=== PATIENT | female | born 1955 | race Caucasian/White ===

== ENCOUNTER 2020-08-01 14:54 | Outpatient (REF) | payer OTHER, SELFPAY | END 2020-08-01 14:55 | disposition home or self-care (01) | LOC: HO.LNP 14:54 | PROVIDERS: Visit Provider Internal Medicine | DX: Z20.828 Contact with and (suspected) exposure to other viral communicable diseases (principal); R68.89 Other general symptoms and signs; M79.10 Myalgia, unspecified site | CPT/HCPCS: U0003 ==

== ENCOUNTER 2021-05-26 09:00 | Outpatient (REF) | payer MEDICARE, SELFPAY ==
[2021-05-26 09:21] LABS: MANUAL DIFF FLAG NO
[2021-05-26 09:27] LABS: Basophils Percent Auto 0.6 % (0-2); Eosinophils Absolute Auto 0.3 X10*3/uL (0.0-0.4); Eosinophils Percent Auto 5.8 % (0-4); Hematocrit 41.7 % (37-47); Hemoglobin 13.9 g/dl (12.0-16.0); Imm Gran Abs Auto 0.02 X10*3/uL (0.00-0.03); Imm Gran Pct Auto 0.4 % (0.0-0.4); Lymphocytes Absolute Auto 1.6 X10*3/uL (1.2-4.9); Lymphocytes Percent Auto 34.4 % (20-40); Mean Corpuscular HGB Conc 33.3 g/dl (31.0-35.0); Mean Corpuscular Hemoglobin 32.3 pg (27.0-33.0); Mean Corpuscular Volume 96.8 fL (80-98); Mean Platelet Volume 10.1 fL (9.4-12.3); Monocytes Absolute Auto 0.5 X10*3/uL (0.1-1.2); Monocytes Percent Auto 9.9 % (2-11); Neutrophils Absolute Auto 2.3 X10*3/uL (2.0-8.3); Neutrophils Percent Auto 48.9 % (45-73); Platelet Count 239 X10*3/uL (160-400); Red Blood Count 4.31 X10*6/uL (4.20-5.50); Red Cell Distribution Width 12.9 % (11.0-16.0); White Blood Count 4.7 X10*3/uL (4.8-10.8)
[2021-05-26 09:50] LABS: Alanine Aminotransferase 51 U/L (0-31); Albumin Level 4.4 g/dL (3.5-5.0); Alkaline Phosphatase 71 U/L (39-117); Anion Gap 11 (12-20); Aspartate Amino Transferase 32 U/L (5-31); Bilirubin Total 0.6 mg/dL (0.0-1.0); Blood Urea Nitrogen 18 mg/dL (9-16); Calcium 9.5 mg/dL (8.4-10.2); Carbon Dioxide 27 mmol/L (22-29); Chloride 104 mmol/L (96-108); Cholesterol 344 mg/dL; Estimated Glomerular Filt Rate > 60; Glucose Fasting 103 mg/dL (60-99); HDL Cholesterol 59 mg/dL; LDL Cholesterol Calculated 218 mg/dl; Potassium 4.4 mmol/L (3.3-5.1); Sodium 138 mmol/L (135-145); Total Protein 6.8 g/dL (6.5-8.0); Triglycerides 337 mg/dL
[2021-05-26 10:12] LABS: Vitamin D 25-OH Total 25.9 ng/mL (>30)
== END 2021-05-26 09:01 | disposition home or self-care (01) ==
LOC: HO.LAB 09:00
PROVIDERS: PCP Internal Medicine; Visit Provider Internal Medicine
DX: E78.00 Pure hypercholesterolemia, unspecified (principal); E55.9 Vitamin D deficiency, unspecified; M81.0 Age-related osteoporosis without current pathological fracture
CPT/HCPCS: 36415; 80053; 80061; 82306; 85025

== ENCOUNTER 2021-07-26 07:19 | Outpatient (REF) | payer MEDICARE, SELFPAY ==
--- NOTE | ~2021-07-26 | MM_ITS ---
EXAMINATION: MM SCREENING DIGITAL BREAST TOMOSYNTHESIS, BILATERAL CLINICAL INFORMATION: Screening. Asymptomatic. The lifetime risk of breast cancer based on the Tyrer-Cuzick Model is 6%. COMPARISON: Mammography: 07/03/2018, 06/19/2000, 07/28/2015, 02/02/2015, 01/27/2015 TECHNIQUE: Digital breast tomosynthesis is performed in both the craniocaudal and mediolateral oblique views along with computer-aided detection (CAD). Synthesized 2D images are generated from the tomosynthesis. Additional left MLO view is provided. FINDINGS: The breasts are heterogeneously dense, which may obscure small masses (ACR BI-RADS breast composition Category c). There is fibronodular parenchymal pattern similar to prior studies. No developing density. There are 2 biopsy clip markers left breast upper inner and lower inner quadrants, respectively. There is no significant mass or architectural abnormality or abnormal calcifications. There is a low right axillary tail node with old coarse calcification in the node, similar to prior MLO view 2017. The skin contours are smooth. No significant changes. MM/MM tomosynthesis screening BI IMPRESSION: No mammographic evidence of malignancy. ASSESSMENT: BI-RADS 2: Benign RECOMMENDATION: Routine annual mammography screening. This patient's information was entered into a reminder system with a target due date for their next mammogram.
--- NOTE | ~2021-07-26 | MM_ITS ---
EXAMINATION: BONE DENSITOMETRY CLINICAL INDICATION: Osteoporosis. COMPARISON: Previous BD dated 10/11/2017 and baseline BD dated 07/09/2008. TECHNIQUE: Using a [employer] DXA System (software version: 13.1) manufactured by [employer], dual-energy x-ray absorptiometry was performed of the lumbar spine and left hip. The images are of good technical quality. Summary results are attached. FINDINGS: AP SPINE L1-L4: Current: BMD 0.890 g/cm2, Z-score -0.3, T-score -2.4, osteopenia, 0.0% change from previous, 4.1% decrease from baseline (<5% change is not significant). Prior: BMD 0.890 g/cm2. Baseline: BMD 0.928 g/cm2. LEFT FEMUR, NECK: Current: BMD 0.697 g/cm2, Z-score -0.6, T-score -2.5, osteoporosis. Prior: BMD 0.703 g/cm2. Baseline: BMD 0.795 g/cm2. LEFT FEMUR, TOTAL: Current: BMD 0.867 g/cm2, Z-score 0.5, T-score -1.1, osteopenia, 5.5% decrease from previous, 6.9% decrease from baseline (<5% change is not significant). Prior: BMD 0.917 g/cm2. Baseline: BMD 0.931 g/cm2. IDENTIFIED RISK FACTORS: Menopause, history of fracture (adult), low calcium intake, osteoporosis. HISTORY OF FRACTURE: Wrist. MEDICATIONS: Multivitamin, vitamin D. MM/XR DEXA axial skeleton IMPRESSION: 1. DIAGNOSIS: Osteoporosis based on the lowest T-score value of -2.5 in the femoral neck applying World Health Organization criteria. 2. 10-YEAR FRACTURE RISK PREDICTION, FRAX: According to the guidelines, FRAX calculation should only be performed on patients in the osteopenia bone density category. 3. Treatment Recommendations: NOF guidelines recommend consideration for treatment in postmenopausal women and men age 50 and older presenting with the following: -A hip or vertebral (clinical or morphometric) fracture. -T-score less than or equal to -2.5 at the femoral neck or spine after appropriate evaluation to exclude secondary causes. -Low bone mass at the hip or spine and a 10-year fracture probability by FRAX of greater than or equal to 3% for hip fracture or greater than or equal to 20% for major osteoporotic fracture based on the [place] adapted WHO algorithm. 4. Other Recommendations: All treatment decisions require clinical judgment and consideration of individual patient factors, including patient preferences, comorbidities, previous drug use, risk factors not captured in the FRAX model (e.g. frailty, falls, vitamin D deficiency, increased bone turnover, interval significant decline in bone density) and possible under or overestimation of fracture risk by FRAX. Additional medical evaluation for secondary cause of low bone mineral density may be appropriate. FUTURE SCAN RECOMMENDATION: People with diagnosed cases of osteoporosis or at high risk for fracture should have regular bone mineral density tests. For patients eligible for Medicare, routine testing is allowed once every 2 years. The testing frequency can be increased to one year for patients who have rapidly progressing disease, those who are receiving or discontinuing medical therapy to restore bone mass, or have additional risk factors.
== END 2021-07-26 07:20 | disposition home or self-care (01) ==
LOC: HO.MAMMO 07:19
PROVIDERS: Visit Provider Internal Medicine
DX: Z12.31 Encounter for screening mammogram for malignant neoplasm of breast (principal); Z13.820 Encounter for screening for osteoporosis; M81.0 Age-related osteoporosis without current pathological fracture; Z78.0 Asymptomatic menopausal state; Z87.81 Personal history of (healed) traumatic fracture; Z79.899 Other long term (current) drug therapy
CPT/HCPCS: 77063; 77067; 77080

== ENCOUNTER 2021-09-08 12:38 | Day surgery (SDC) | payer MEDICARE, SELFPAY ==
[2021-09-01 11:15] VITALS: BMI 21.1
--- NOTE | 2021-09-06 14:14 | HO.ANESPROP2 ---
Documented by User: Hyun Contreras NP 09/06/21 14:15 HPI - Anesthesia Eval Consult details Narrative: 65yo F for Colonoscopy [facility] Past Medical History Medical History (Updated 09/01/21 @ 11:08 by Nelli Delaney RN) Anxiety and depression Elevated cholesterol IBS (irritable bowel syndrome) Osteoporosis Surgical History Surgical History (Updated 09/01/21 @ 11:09 by Nelli Delaney RN) H/O colonoscopy Hx of hemorrhoidectomy Social History Social History Patient Tobacco Use Status: Tobacco use Unknown Advance Directives Information Provided: Yes (informational brochure mailed) Advance Directives on File: No Meds Allergies Allergy/AdvReac Type Severity Reaction Status Date / Time celecoxib [From CELEBREX] Allergy Severe ANAPHYLAXIS Verified 09/08/21 12:54 NSAIDS (Non-Steroidal Allergy Severe ANYPHYLAXIS Verified 09/08/21 12:54 Anti-Inflamma [NSAIDS (NON-STEROIDAL ANTI-INFLAMMA] Sulfa (Sulfonamide Allergy Severe ANAPHYLAXIS Verified 09/08/21 12:54 Antibiotics) [SULFA (SULFONAMIDE ANTIBIOTICS)] oxycodone [Percocet] AdvReac Intermediate hearing Verified 09/01/21 08:42 things Home Medications Medication Instructions Recorded Confirmed Last Taken Type Ativan 09/01/21 Unknown History Zoloft 09/01/21 09/01/21 Unknown History atorvastatin 09/01/21 Unknown History Exam Exam Date and Time: September 06, 2021 1414 Height,Weight and Vital Signs: Height 5 ft 1 in Weight 50.802 kg Pertinent Lab Results Pertinent Lab Results: Laboratory Tests 05/26/21 05/26/21 09:10 09:10 WBC 4.7 L Hgb 13.9 Hct 41.7 Plt Count 239 Sodium 138 Potassium 4.4 Chloride 104 Carbon Dioxide 27 BUN 18 H Creatinine 0.75 Assessment and Plan Assessment Anesthesia Assessment: Chart Reviewed Documented by User: Nelsy Marin MD 09/08/21 13:50 [facility] Past Medical History Medical History (Updated 09/01/21 @ 11:08 by Nelli Delaney RN) Anxiety and depression Elevated cholesterol IBS (irritable bowel syndrome) Osteoporosis Family History Family history of problems with anesthesia: No Surgical History Surgical History (Updated 09/01/21 @ 11:09 by Nelli Delaney RN) H/O colonoscopy Hx of hemorrhoidectomy History of Problems with Anesthesia: No Social History Social History Patient Tobacco Use Status: Tobacco use Unknown Advance Directives Information Provided: Yes (informational brochure mailed) Advance Directives on File: No Meds Allergies Allergy/AdvReac Type Severity Reaction Status Date / Time celecoxib [From CELEBREX] Allergy Severe ANAPHYLAXIS Verified 09/08/21 12:54 NSAIDS (Non-Steroidal Allergy Severe ANYPHYLAXIS Verified 09/08/21 12:54 Anti-Inflamma [NSAIDS (NON-STEROIDAL ANTI-INFLAMMA] Sulfa (Sulfonamide Allergy Severe ANAPHYLAXIS Verified 09/08/21 12:54 Antibiotics) [SULFA (SULFONAMIDE ANTIBIOTICS)] oxycodone [Percocet] AdvReac Intermediate hearing Verified 09/01/21 08:42 things Home Medications Medication Instructions Recorded Confirmed Last Taken Type Ativan 09/01/21 Unknown History Zoloft 09/01/21 09/01/21 Unknown History atorvastatin 09/01/21 Unknown History Exam Airway Mallampati Class: II TM Dist: >3cm Neck ROM: Full Heart: rrr Lungs: cta Assessment and Plan Assessment Anesthesia Assessment: Anesthesia Plan Discussed and Chart Reviewed Final Anesthetic Review Family History of Problems with Anesthesia: No History of Problems with Anesthesia: No NPO: Yes ASA Class: II Final Preanesthetic Review: No Changes in Pt Med Stat, Meds/Allgs Chart Reviewed and Consent Obtained/Reviewed Patient Risk: Intermediate Procedure Risk: Intermediate Anesthetic Plan Anesthetic Plan: MAC: Disposition: Standard PACU
[2021-09-08 12:55] VITALS: BP 153/79; PULSE 74; RESP 16; TEMP 36.6; O2SAT 96
[2021-09-08] MEDS: Lactated Ringers 1,000 ML 100 ML IVCONT (13:12)
[2021-09-08 14:55] VITALS: BP 121/68; PULSE 83; RESP 12; TEMP 36.2; O2SAT 98
--- NOTE | 2021-09-08 14:57 | PM.OP ---
Brief Operative Note Date of Service: 09/08/21 Pre-op diagnosis: Screening Post-op diagnosis: other (Internal and External hemorrhoids, Diverticulosis) Procedure: Colonoscopy to the cecum and TI Surgeon: Keanu Omalley Anesthesia: MAC Was an Personal Companion used for this Procedure?: No Estimated blood loss (mL): 0 Pathology: none sent Condition: stable Disposition: PACU
[2021-09-08 15:10] VITALS: BP 161/88; PULSE 74; RESP 16; TEMP 36.2; O2SAT 99
--- NOTE | 2021-09-08 16:54 | OP_ITS ---
SURGEON: Keanu Omalley MD INDICATIONS: The patient presents for evaluation of colorectal cancer screening, as well as occasional hematochezia. Full consent was obtained from her for this, including risks of bleeding and perforation. PREOPERATIVE DIAGNOSIS: Colorectal cancer screening and occasional hematochezia. POSTOPERATIVE DIAGNOSIS: Colorectal cancer screening and occasional hematochezia, internal and external hemorrhoids, mild sigmoid diverticulosis. PROCEDURE PERFORMED: Colonoscopy to the cecum and terminal ileum. ESTIMATED BLOOD LOSS: COMPLICATIONS: ANESTHESIA: Medication used, monitored anesthesia care. ASSISTANTS: SPECIMENS: DESCRIPTION OF PROCEDURE: The patient was placed in the left lateral decubitus position. The digital rectal exam revealed a single external hemorrhoid. An Olympus video pediatric colonoscope was entered into the rectum, advanced easily to the cecum. Once in the cecum, I did identify normal-appearing cecal pouch other than some tiny areas of blood which were irrigated and washed away completely, without any sign of underlying mucosal abnormality. The terminal ileum was cannulated and appeared normal, without any sign of bleeding The scope was withdrawn back in the colon. The cecum including the appendiceal orifice and ileocecal valve appeared normal. There was transillumination of light deep in the right lower quadrant. The scope was then slowly withdrawn, assessing all mucosal surfaces carefully. Preparation was excellent. I did not visualize any sign of polyps, colitis, nor angiodysplasia. There was a mild amount of sigmoid diverticulosis. In the rectum, scope was retroflexed visualizing internal hemorrhoids, but no other pathology. The rectal mucosa appeared normal. The scope was straightened and withdrawn from the patient. She tolerated the procedure well and was returned to the recovery area in stable condition. IMPRESSION: 1. Internal and external hemorrhoids. 2. Mild sigmoid diverticulosis. PLAN: Given the negative exam, I would recommend a followup colonoscopy in 10 years. She says she has not had any further bleeding for the past several weeks. She can use symptomatic treatment for the hemorrhoids such as preparation H or Anusol suppositories and/or cream. If the hemorrhoids continue to be problematic, she may need eventual surgical consultation. She will otherwise see me on a p.r.n. basis. MD MONA Larkin/FLOWER / [phone] [facility] HOSPITALMarianne
== END 2021-09-08 15:35 | disposition home or self-care (01) ==
PROVIDERS: PCP Internal Medicine; Visit Provider Internal Medicine
PROC: 0DJD8ZZ Inspection of Lower Intestinal Tract, Via Natural or Artificial Opening Endoscopic (ICD-10-PCS; CPT 45378; principal; 2021-09-08 13:50)
DX: Z12.11 Encounter for screening for malignant neoplasm of colon (principal); K57.30 Diverticulosis of large intestine without perforation or abscess without bleeding; K64.8 Other hemorrhoids; K64.4 Residual hemorrhoidal skin tags; K58.9 Irritable bowel syndrome, unspecified; E78.00 Pure hypercholesterolemia, unspecified; M81.0 Age-related osteoporosis without current pathological fracture; F41.8 Other specified anxiety disorders; Z66 Do not resuscitate; Z79.899 Other long term (current) drug therapy
CPT/HCPCS: G0121

== ENCOUNTER 2022-06-27 08:09 | Outpatient (REF) | payer MEDICARE, SELFPAY ==
[2022-06-27 08:19] LABS: MANUAL DIFF FLAG NO
[2022-06-27 08:59] LABS: Basophils Percent Auto 0.4 % (0-2); Eosinophils Absolute Auto 0.3 X10*3/uL (0.0-0.4); Eosinophils Percent Auto 5.9 % (0-4); Hematocrit 41.4 % (37.0-47.0); Hemoglobin 13.8 g/dl (12.0-16.0); Imm Gran Abs Auto 0.01 X10*3/uL (0.00-0.03); Imm Gran Pct Auto 0.2 % (0.0-0.4); Lymphocytes Absolute Auto 1.5 X10*3/uL (1.2-4.9); Lymphocytes Percent Auto 33.1 % (20-40); Mean Corpuscular HGB Conc 33.3 g/dl (31.0-35.0); Mean Corpuscular Volume 96.1 fL (80.0-98.0); Mean Platelet Volume 10.6 fL (9.4-12.3); Monocytes Absolute Auto 0.5 X10*3/uL (0.1-1.2); Monocytes Percent Auto 11.3 % (2-11); Neutrophils Absolute Auto 2.3 x10*3/uL (2.0-8.3); Neutrophils Percent Auto 49.1 % (45-73); Platelet Count 257 X10*3/uL (160-400); Red Blood Count 4.31 X10*6/uL (4.20-5.50); Red Cell Distribution Width 12.9 % (11.0-16.0); White Blood Count 4.6 X10*3/uL (4.8-10.8)
[2022-06-27 09:24] LABS: Alanine Aminotransferase 32 U/L (0-31); Albumin Level 4.5 g/dL (3.5-5.0); Alkaline Phosphatase 74 U/L (39-117); Anion Gap 16 (12-20); Aspartate Amino Transferase 30 U/L (5-31); Bilirubin Total 0.8 mg/dL (0.0-1.0); Blood Urea Nitrogen 20 mg/dL (9-16); Calcium 9.2 mg/dL (8.4-10.2); Carbon Dioxide 24 mmol/L (22-29); Chloride 105 mmol/L (96-108); Cholesterol 216 mg/dL; Estimated Glomerular Filt Rate > 60; Glucose Random 94 mg/dL (60-115); HDL Cholesterol 63 mg/dL; LDL Cholesterol Calculated 120 mg/dl; Potassium 4.5 mmol/L (3.3-5.1); Sodium 140 mmol/L (135-145); Total Protein 6.8 g/dL (6.5-8.0); Triglycerides 168 mg/dL
[2022-06-27 09:50] LABS: Vitamin D 25-OH Total 32.1 ng/mL (>30)
== END 2022-06-27 08:10 | disposition home or self-care (01) ==
LOC: HO.LAB 08:09
PROVIDERS: PCP Internal Medicine; Visit Provider Internal Medicine
DX: E55.9 Vitamin D deficiency, unspecified (principal); E78.00 Pure hypercholesterolemia, unspecified
CPT/HCPCS: 36415; 80053; 80061; 82306; 85025

== ENCOUNTER 2022-06-29 10:44 | Outpatient (REF) | payer MEDICARE, SELFPAY ==
[2022-06-29 14:06] LABS: Free T4 (Free Thyroxine) 0.91 ng/dL (0.71-1.85); Thyroid Stimulating Hormone 1.36 uIU/mL (0.32-4.0); Vitamin D 25-OH Total 30.3 ng/mL (>30)
[2022-06-29 14:58] LABS: Vitamin B12 379 pg/mL (200-900)
== END 2022-06-29 10:45 | disposition home or self-care (01) ==
LOC: HO.10HDL 10:44
PROVIDERS: Visit Provider Internal Medicine
DX: R53.83 Other fatigue (principal); E55.9 Vitamin D deficiency, unspecified
CPT/HCPCS: 36415; 82306; 82607; 84439; 84443

== ENCOUNTER 2022-12-19 08:24 | Outpatient (REF) | payer MEDICARE, SELFPAY ==
[2022-12-19 09:22] LABS: Anion Gap 14 (12-20); Blood Urea Nitrogen 22 mg/dL (9-16); Calcium 9.5 mg/dL (8.4-10.2); Carbon Dioxide 27 mmol/L (22-29); Chloride 105 mmol/L (96-108); Estimated Glomerular Filt Rate > 60; Glucose Random 97 mg/dL (60-115); Potassium 4.4 mmol/L (3.3-5.1); Sodium 142 mmol/L (135-145)
[2022-12-19 09:48] LABS: Thyroid Stimulating Hormone 3.22 uIU/mL (0.32-4.0); Vitamin B12 453 pg/mL (200-900)
== END 2022-12-19 08:25 | disposition home or self-care (01) ==
LOC: HO.LAB 08:24
PROVIDERS: PCP Internal Medicine; Visit Provider Internal Medicine
DX: E55.9 Vitamin D deficiency, unspecified (principal); R53.83 Other fatigue; K57.90 Diverticulosis of intestine, part unspecified, without perforation or abscess without bleeding
CPT/HCPCS: 36415; 80048; 82607; 84439; 84443

== ENCOUNTER 2023-01-25 07:16 | Outpatient (REF) | payer MEDICARE, SELFPAY ==
--- NOTE | ~2023-01-25 | MM_ITS ---
EXAMINATION: MM SCREENING DIGITAL BREAST TOMOSYNTHESIS, BILATERAL CLINICAL INFORMATION: Screening. Asymptomatic. The lifetime risk of breast cancer based on the Tyrer-Cuzick Model is 4%. COMPARISON: Mammography: 07/26/2021, 07/03/2018, 06/19/2017 TECHNIQUE: Digital breast tomosynthesis is performed in both the craniocaudal and mediolateral oblique views along with computer-aided detection (CAD). Synthesized 2D images are generated from the tomosynthesis. FINDINGS: The breasts are heterogeneously dense, which may obscure small masses (ACR BI-RADS breast composition Category c). There are no significant masses, abnormal calcifications, or other abnormalities. Parenchymal pattern is similar to prior studies. There is no developing density or architectural abnormality. There are 2 biopsy clip markers again seen mid inner left breast. Incidental low right axillary tail node is again noted. The axilla and skin contours are unremarkable. No significant changes. MM/MM tomosynthesis screening BI IMPRESSION: No mammographic evidence of malignancy. ASSESSMENT: BI-RADS 2: Benign RECOMMENDATION: Routine annual mammography screening. This patient's information was entered into a reminder system with a target due date for their next mammogram.
== END 2023-01-25 07:17 | disposition home or self-care (01) ==
LOC: HO.MAMMO 07:16
PROVIDERS: PCP Internal Medicine; Visit Provider Internal Medicine
DX: Z12.31 Encounter for screening mammogram for malignant neoplasm of breast (principal)
CPT/HCPCS: 77063; 77067

== ENCOUNTER 2023-03-05 09:06 | Outpatient (REF) | payer MEDICARE, SELFPAY ==
[2023-03-05 10:28] LABS: Free T4 (Free Thyroxine) 0.93 ng/dL (0.71-1.85); Thyroid Stimulating Hormone 1.62 uIU/mL (0.32-4.0)
== END 2023-03-05 09:07 | disposition home or self-care (01) ==
LOC: HO.LAB 09:06
PROVIDERS: PCP Internal Medicine; Visit Provider Internal Medicine
DX: E03.9 Hypothyroidism, unspecified (principal); R53.83 Other fatigue
CPT/HCPCS: 36415; 84439; 84443

== ENCOUNTER 2023-07-26 09:14 | Outpatient (REF) | payer MEDICARE, SELFPAY ==
[2023-07-26 10:40] LABS: MANUAL DIFF FLAG NO
[2023-07-26 10:45] LABS: Basophils Percent Auto 0.8 % (0-2); Eosinophils Absolute Auto 0.2 X10*3/uL (0.0-0.4); Eosinophils Percent Auto 4.3 % (0-4); Hematocrit 38.9 % (37.0-47.0); Lymphocytes Absolute Auto 1.6 X10*3/uL (1.2-4.9); Lymphocytes Percent Auto 38.9 % (20-40); Mean Corpuscular HGB Conc 33.4 g/dl (31.0-35.0); Mean Corpuscular Hemoglobin 32.5 pg (27.0-33.0); Mean Corpuscular Volume 97.3 fL (80.0-98.0); Mean Platelet Volume 10.4 fL (9.4-12.3); Monocytes Absolute Auto 0.5 X10*3/uL (0.1-1.2); Monocytes Percent Auto 11.8 % (2-11); Neutrophils Absolute Auto 1.8 x10*3/uL (2.0-8.3); Neutrophils Percent Auto 44.2 % (45-73); Platelet Count 237 X10*3/uL (160-400); Red Cell Distribution Width 13.3 % (11.0-16.0)
[2023-07-26 11:08] LABS: Alanine Aminotransferase 24 U/L (0-31); Albumin Level 4.2 g/dL (3.5-5.0); Alkaline Phosphatase 65 U/L (39-117); Anion Gap 11 (12-20); Aspartate Amino Transferase 21 U/L (5-31); Bilirubin Total 0.5 mg/dL (0.0-1.0); Blood Urea Nitrogen 17 mg/dL (9-16); Calcium 9.2 mg/dL (8.4-10.2); Carbon Dioxide 27 mmol/L (22-29); Chloride 108 mmol/L (96-108); Cholesterol 229 mg/dL (<200); Estimated Glomerular Filt Rate > 60; Glucose Fasting 102 mg/dL (60-99); HDL Cholesterol 57 mg/dL (>40); LDL Cholesterol Calculated 142 mg/dL (<100); Potassium 4.1 mmol/L (3.3-5.1); Sodium 142 mmol/L (135-145); Total Protein 6.7 g/dL (6.5-8.0); Triglycerides 154 mg/dL (<150)
[2023-07-26 11:22] LABS: Free T4 (Free Thyroxine) 0.75 ng/dL (0.71-1.85); Thyroid Stimulating Hormone 2.29 uIU/mL (0.32-4.0); Vitamin D 25-OH Total 28.7 ng/mL (>30)
[2023-07-26 11:30] LABS: Vitamin B12 362 pg/mL (200-900)
== END 2023-07-26 09:15 | disposition home or self-care (01) ==
LOC: HO.10HDL 09:14
PROVIDERS: Visit Provider Internal Medicine
DX: E55.9 Vitamin D deficiency, unspecified (principal); K21.9 Gastro-esophageal reflux disease without esophagitis; R53.83 Other fatigue; E05.90 Thyrotoxicosis, unspecified without thyrotoxic crisis or storm
CPT/HCPCS: 36415; 80053; 80061; 82306; 82607; 84439; 84443; 85025

== ENCOUNTER 2023-10-01 09:46 | Outpatient (AMB) | payer MEDICARE, SELFPAY ==
--- NOTE | 2023-10-01 10:06 | A.OFFVIS_ITS ---
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 States her finger is catching and locking for the last 4-6 months and has worsen. Denies numbness, tingling or recent injury. Hx of OA pain. Hx of trigger injection 10 7rs ago. 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 She says her middle finger has been locking painfully for ~6 months now. She denies any numbness, tingling, or injury. She has a hx a trigger finger injection in ~2012, but cannot remember which finger this was for. She does remember this injection resolved her triggering at the time. 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 Review of Systems Const All systems reviewed & are unremarkable except as noted in HPI and below Physical Exam Vital Signs: BMI result Body Mass Index 21.4 Const General: cooperative, healthy appearing and no acute distress Orientation/consciousness: patient oriented x3 HEENT Head: Yes normocephalic and Yes atraumatic Eyes EOM: EOMs intact bilaterally Resp Effort & Inspection: normal respiratory effort and able to speak in complete sentences Cardio Jugular venous distension: no JVD Skin General skin exam: turgor normal Rashes: no rashes Neuro General: patient oriented x3 Extrem Other: Evaluation of Right Upper Extremity: The patient is alert, oriented, and in no acute distress Neuro: Median, Ulnar, Radial nerves motor and sensory intact and sensation is normal to the tips of all digits Vascular: Cap refill brisk ROM: She can make a fist and extend all his digits Visible and palpable locking and catching of the middle finger Tender over the a1 lissy of the middle finger Skin: No lacerations or abrasions. General: No Ecchymosis. No Erythema or evidence of infection. Psych Appearance: grossly normal Affect: normal affect Attitude: cooperative Office Procedures Fracture Care Details: No fracture, injection Fracture Billing Code: Fracture Billing Code Assessment & Plan Assessment & Plan (1) Trigger finger, right middle finger: Code(s): M65.331 - Trigger finger, right middle finger Plan Assessment & Plan: 1. Right middle finger trigger finger I educated her about this condition I discussed operative and non-operative treatment options The patient would like to proceed with an injection Injection #1: The risks and benefits of a steroid injection including but not limited to risk of damage to blood vessels, nerves, tendons, infection, skin bleaching, failure to improve symptoms, increased pain, and possible need for further injections or other intervention were discussed with the patient and the patient wishes to proceed with the steroid injection. Once consent was obtained, I sterilely prepped the area over the A1 lissy of the flexor tendon sheath of the right middle finger. I then injected the flexor tendon sheath with a combination of 1 mL of dexamethasone (4mg/ml), and 1% lidocaine. The patient tolerated the procedure well with no complications. If the patient continues to have locking and catching 4-6 weeks following this injection, they may call to schedule appointment to discuss alternative treatment options Follow-up prn Scribed for Guillermina Nicholson MD by Shahab Mata medical illustrator, on 10/01/23 at 10:30 AM, EST. Coding Level of Care Code New Pt Level 3 (37534) Diagnoses Trigger finger, right middle finger M65.331 CPT Codes Fracture Care - Fracture Billing Code: Fracture Billing Code ([id number])
[2023-10-01 10:09] VITALS: BMI 21.4
== END 2023-10-01 10:51 | disposition home or self-care (01) ==
PROVIDERS: PCP Internal Medicine; Visit Provider Orthopaedic Surgery
DX: M65.331 Trigger finger, right middle finger (principal)
CPT/HCPCS: 20550; 99203

== ENCOUNTER → 2023-10-01 09:46 | Outpatient (BNVA) | payer MEDICARE, SELFPAY | PROVIDERS: PCP Internal Medicine; Visit Provider Orthopaedic Surgery | DX: M65.331 Trigger finger, right middle finger (principal) | CPT/HCPCS: 20550; 99202; J1100 ==

== ENCOUNTER 2023-12-06 09:15 | Outpatient (REF) | payer MEDICARE, SELFPAY ==
[2023-12-06 10:50] LABS: Cholesterol 279 mg/dL (<200); HDL Cholesterol 56 mg/dL (>40)
[2023-12-06 11:01] LABS: LDL Cholesterol Calculated 170 mg/dL (<100); Triglycerides 267 mg/dL (<150)
[2023-12-06 11:09] LABS: Free T4 (Free Thyroxine) 0.89 ng/dL (0.71-1.85); Vitamin D 25-OH Total 29.6 ng/mL (>30)
== END 2023-12-06 09:16 | disposition home or self-care (01) ==
LOC: HO.LAB 09:15
PROVIDERS: PCP Internal Medicine; Visit Provider Internal Medicine
DX: E78.00 Pure hypercholesterolemia, unspecified (principal); E55.9 Vitamin D deficiency, unspecified; E03.9 Hypothyroidism, unspecified
CPT/HCPCS: 36415; 80061; 82306; 84439; 84443

== ENCOUNTER 2023-12-10 10:51 | Outpatient (REF) | payer MEDICARE, SELFPAY ==
[2023-12-10 14:27] LABS: Appearance Urine Clear; Color Urine Yellow; Glucose Urine UA Negative (Negative); Leukocyte Esterase Urine Negative (Negative); Nitrite Urine Negative (Negative); PH 7.5 (5.0-9.0); Specific Gravity - Urine <= 1.005 (1.005-1.025); Urine Blood Negative (Negative); Urine Ketones Negative (Negative); Urine Protein Negative (Neg-Trace)
[2023-12-10 14:30] LABS: Bacteria Urine None Seen (None Seen); Hyaline Casts Urine 0-2 /LPF (0-2); RBC Urine 0-2 /HPF (0-2); Squamous Epithelial Cell Urine 0-2 /HPF (0-2); WBC Urine 0-5 /HPF (0-5)
== END 2023-12-10 10:52 | disposition home or self-care (01) ==
LOC: HO.10HDL 10:51
PROVIDERS: Visit Provider Internal Medicine
DX: Z13.89 Encounter for screening for other disorder (principal)
CPT/HCPCS: 81001; 87086

== ENCOUNTER 2024-03-25 09:48 | Outpatient (REF) | payer MEDICARE, SELFPAY ==
[2024-03-25 11:35] LABS: Alanine Aminotransferase 33 U/L (0-31); Aspartate Amino Transferase 29 U/L (5-31); Cholesterol 225 mg/dL (<200); HDL Cholesterol 69 mg/dL (>40); LDL Cholesterol Calculated 136 mg/dL (<100); Triglycerides 101 mg/dL (<150)
[2024-03-25 11:50] LABS: Vitamin B12 370 pg/mL (200-900)
[2024-03-25 11:53] LABS: Free T4 (Free Thyroxine) 0.86 ng/dL (0.71-1.85)
== END 2024-03-25 09:49 | disposition home or self-care (01) ==
LOC: HO.10HDL 09:48
PROVIDERS: Visit Provider Internal Medicine
DX: E03.9 Hypothyroidism, unspecified (principal); E78.00 Pure hypercholesterolemia, unspecified; R53.83 Other fatigue
CPT/HCPCS: 36415; 80061; 82550; 82607; 84439; 84443; 84450; 84460

== ENCOUNTER 2024-10-01 14:44 | Outpatient (REF) | payer MEDICARE, SELFPAY | END 2024-10-01 14:45 | disposition home or self-care (01) | LOC: HO.MAMMO 14:44 | PROVIDERS: PCP Internal Medicine; Visit Provider Internal Medicine | DX: Z12.31 Encounter for screening mammogram for malignant neoplasm of breast (principal) | CPT/HCPCS: 77063; 77067 ==

== ENCOUNTER → 2024-10-01 15:00 | Outpatient (BNV) | payer MEDICARE, SELFPAY | PROVIDERS: PCP Internal Medicine; Visit Provider Internal Medicine | DX: Z12.31 Encounter for screening mammogram for malignant neoplasm of breast (principal) | CPT/HCPCS: 77063; 77067 ==

== ENCOUNTER 2024-10-13 11:00 | Outpatient (REF) | payer MEDICARE, SELFPAY ==
[2024-10-13 13:04] LABS: MANUAL DIFF FLAG NO
[2024-10-13 13:07] LABS: Basophils Percent Auto 0.7 % (0-2); Eosinophils Absolute Auto 0.2 X10*3/uL (0.0-0.4); Eosinophils Percent Auto 3.9 % (0-4); Hematocrit 42.2 % (37.0-47.0); Imm Gran Abs Auto 0.01 X10*3/uL (0.00-0.03); Imm Gran Pct Auto 0.2 % (0.0-0.4); Lymphocytes Absolute Auto 1.5 X10*3/uL (1.2-4.9); Lymphocytes Percent Auto 33.6 % (20-40); Mean Corpuscular HGB Conc 33.2 g/dl (31.0-35.0); Mean Corpuscular Hemoglobin 31.7 pg (27.0-33.0); Mean Corpuscular Volume 95.7 fL (80.0-98.0); Mean Platelet Volume 10.6 fL (9.4-12.3); Monocytes Absolute Auto 0.5 X10*3/uL (0.1-1.2); Monocytes Percent Auto 10.5 % (2-11); Neutrophils Absolute Auto 2.3 x10*3/uL (2.0-8.3); Neutrophils Percent Auto 51.1 % (45-73); Platelet Count 263 X10*3/uL (160-400); Red Blood Count 4.41 X10*6/uL (4.20-5.50); Red Cell Distribution Width 12.7 % (11.0-16.0); White Blood Count 4.6 X10*3/uL (4.8-10.8)
[2024-10-13 13:29] LABS: Alanine Aminotransferase 36 U/L (0-31); Albumin Level 4.6 g/dL (3.5-5.0); Alkaline Phosphatase 68 U/L (39-117); Anion Gap 12 (12-20); Aspartate Amino Transferase 26 U/L (5-31); Bilirubin Total 0.8 mg/dL (0.0-1.0); Blood Urea Nitrogen 17 mg/dL (9-16); Calcium 9.2 mg/dL (8.4-10.2); Carbon Dioxide 27 mmol/L (22-29); Chloride 106 mmol/L (96-108); Estimated Glomerular Filt Rate > 60; Glucose Random 100 mg/dL (60-115); Sodium 141 mmol/L (135-145); Total Protein 7.4 g/dL (6.5-8.0)
[2024-10-13 13:44] LABS: Free T4 (Free Thyroxine) 0.99 ng/dL (0.71-1.85); Thyroid Stimulating Hormone 2.12 uIU/mL (0.32-4.0)
== END 2024-10-13 11:01 | disposition home or self-care (01) ==
LOC: HO.10HDL 11:00
PROVIDERS: Visit Provider Internal Medicine
DX: E03.9 Hypothyroidism, unspecified (principal); R53.83 Other fatigue; K58.9 Irritable bowel syndrome, unspecified
CPT/HCPCS: 36415; 80053; 84439; 84443; 85025

== ENCOUNTER 2025-01-04 09:25 | Outpatient (REF) | payer MEDICARE, SELFPAY ==
--- NOTE | ~2025-01-04 | XR_ITS ---
CLINICAL HISTORY: PAIN 3 views right foot Comparison: None Findings: No fractures or dislocations No joint effusion There is degenerative narrowing of the inter phalangeal joint of the great toe. No stress fractures. No radiopaque foreign body Impression: Degenerative joint space narrowing in the great toe. No acute skeletal abnormality. This document has been electronically signed by: Varun Joiner MD on 01/04/2025 21:24:58
[2025-01-04 10:20] LABS: Cholesterol 259 mg/dL (<200); HDL Cholesterol 65 mg/dL (>40); LDL Cholesterol Calculated 164 mg/dL (<100); Triglycerides 150 mg/dL (<150)
--- OUTSIDE RECORDS SUMMARY | 2025-01-04 10:31 | XMS_ITS | Patient Health Record ---
Author Organization [facility] Address [address] [place] [address] Care Team Providers Care Commercial Credit Reviewer Name Role Phone Johan Herrera MD Primary Care Provider Keanu Camarena Unavailable [phone] Allergies Allergen (clinical drug ingredient) Drug/Non Drug Allergy documented on EMR Reaction Allergy Type Onset Date Status Non-steroidal anti-inflammatory agent (FN) NSAIDs life threatening Drug Allergy Active Substance with sulfonamide structure and antibacterial mechanism of action (substance) Sulfa Antibiotics Unknown Drug Allergy Active celecoxib CeleBREX Unknown Drug Allergy Active Reason For Referral No Information Medications Medication SIG (Take, Route, Fr equency, Duration) Notes Start Date End Date Status Ativan Active Zoloft Active Atorvastatin Calcium Active Immunizations Vaccine Route Administration Date Status Comme nts Influenza Unknown 08/11/2021 Refused Social History Tobacco Use: Social History Observation Description Date Details (start date - stop date) Never Smoker NA - NA Tobacco Use/Smoking Question Answer Notes Patient is a nonsmoker Alcohol Screen Question Answer Notes Did you have a drink contain ing alcohol in the past year? Yes How often did you have a dri nk containing alcohol in the past year? 4 or more times a week (4 points) How many drinks did you have on a typical day when you were drinking in the past year? 1 or 2 drinks (0 point) How often did you have 6 or more drinks on one occasion in the past year? Never (0 point) Points 4 Interpretation Positive Section Notes: Nonsmoker; 1 glass of wine Q D Problems Problem Type SNOMED Code ICD Code Onset Dates Problem Status W/U Status Risk Notes Problem 55805556 Rectal bleeding (K62.5) Active confirmed Problem 236559242 Encounter for screening for malignant neoplasm of colon (Z12.11) Active confirmed Problem Diverticulosis of colon (957460920) Diverticulosis of colon (K57.30) Active confirmed Plan Of Treatment Future Test Test Name Order Date COLONOSCOPY 08/11/2021 Insurance Providers Payer Name Payer Address Payer Phone Subscriber Number Group Number Insured Name Patient Relationship to Insured Coverage Start Date Coverage End Date MEDICARE OF [employer] [address] [place] [address] [id number] MAURO WOO Self - patient is the insured Medical (General) History Medical History History ICD Code Denies VA,DM,CVA,Lung disease,renal dise ase Osteoporosis Elevated Cholesterol Negative colonoscopy in 2001 except for internal and external hemorrhoids; negative colonoscopy in 2008 except for internal hemorrhoids Anxiety/Depression Irritable bowel syndrome with negative t ransglutaminase antibody in 2001 Surgical History Surgery Date(Month/Year) Tonsillectomy and adenoidectomy
[2025-01-04 10:36] LABS: Thyroid Stimulating Hormone 2.13 uIU/mL (0.32-4.0)
== END 2025-01-04 09:26 | disposition home or self-care (01) ==
LOC: HO.XRAY 09:25
PROVIDERS: Visit Provider Internal Medicine
DX: E78.00 Pure hypercholesterolemia, unspecified (principal); E03.9 Hypothyroidism, unspecified; M79.671 Pain in right foot
CPT/HCPCS: 36415; 73620; 80061; 84443

== ENCOUNTER → 2025-01-04 10:20 | Outpatient (BNV) | payer MEDICARE, SELFPAY | PROVIDERS: Visit Provider Radiology Diagnostic Radiology | DX: M79.671 Pain in right foot (principal) | CPT/HCPCS: 73620 ==

== ENCOUNTER 2025-02-17 10:41 | Outpatient (AMB) | payer MEDICARE, SELFPAY ==
--- NOTE | 2025-02-17 10:14 | A.OFFPC_ITS ---
Vital Signs 02/17/25 10:47 Height 5 ft 3 in Weight 112 lb BMI 19.8 BP 132/70 Blood Pressure Location Lt brachial Position Sitting Pulse 57 Pulse Source Pulse Oximeter Temp 97.7 F Temp Source Axillary Pulse Oximetry (%) 98 Oxygen Delivery Method Room Air Intake Visit Reasons: Routine - see comments Fish And Wildlife Warden Required: No Accompanied by: Self / Same As Patient Allergies celecoxib [From CELEBREX] Allergy (Severe, Verified 02/17/25 10:15) ANAPHYLAXIS NSAIDS (Non-Steroidal Anti-Inflamma [NSAIDS (NON-STEROIDAL ANTI-INFLAMMA] Allergy (Severe, Verified 02/17/25 10:15) ANYPHYLAXIS Sulfa (Sulfonamide Antibiotics) [SULFA (SULFONAMIDE ANTIBIOTICS)] Allergy (Severe, Verified 02/17/25 10:15) ANAPHYLAXIS oxycodone [Percocet] Adverse Reaction (Intermediate, Verified 02/17/25 10:15) hearing things Tobacco use date assessed: 02/17/25 Fall risk assessment: No Falls in past year Last assessed Fall Risk: 02/17/25 Dental Screening Dental Screen Date: 02/17/25 Did you have a dental visit in the last 12 months?: Yes Did you have a dental problem in the last 6 months where you did not have access to dental care?: No [facility] Medical History (Updated 02/17/25 @ 11:30 by Jorge Garcia MD) Hyperlipidemia IBS (irritable bowel syndrome) Anxiety and depression Elevated cholesterol Osteoporosis Surgical History Hx of hemorrhoidectomy H/O colonoscopy (~09/08/21) Family History (Updated 02/17/25 @ 10:57 by Hannah Orellana MA) Mother No problems noted. Father No problems noted. 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 1. Little interest or pleasure in doing things: not at all 2. Feeling down, depressed, or hopeless: not at all 3. Trouble falling or staying asleep, or sleeping too much: not at all 4. Feeling tired or having little energy: not at all 5. Poor appetite or overeating: not at all 6. Feeling bad about yourself - or that you are a failure or have let yourself or your family down: not at all 7. Trouble concentrating on things, such as reading the newspaper or watching television: not at all 8. Moving or speaking so slowly that other people could have noticed. Or the opposite - being so fidgety or restless that you have been moving around a lot more than usual: not at all 9. Thoughts that you would be better off or of hurting yourself in some way: not at all Total score: 0 Source: Developed by Drs. Keanu Garcia, Chantel Durham, Giovanny Gordillo and colleagues, with an educational baldemar from [employer]. Thrive Questionnaire Date Thrive assessed: 02/17/25 I am a: Patient Within the past 12 months, did the food you bought not last and you didn't have the money to get more?: Never true Within the past 12 months, did you worry whether your food would run out before you got money to buy more?: Never true Do you have trouble paying for medicines?: No Do you have trouble getting transportation to medical appointments?: No Do you have trouble paying your heating and electricity bill?: No Do you have trouble taking care of your child, family member or friend?: No Do you have trouble with day-to-day activities such as bathing, preparing meals, shopping, managing finances, etc.?: No Are you currently unemployed and looking for a job?: No Are you interested in more education?: No THRIVE Score: 0 AUDIT C Alcohol Use Questionnaire (AUDIT-C) 1. How often do you have a drink containing alcohol?: Monthly or less 2. How many drinks containing alcohol do you have on a typical day when you are drinking?: 1 or 2 3. How often do you have six or more drinks on one occasion?: Less than monthly Total Score: 2 FUAD-7 AMB Questionnaire FUAD-7 Date FUAD - 7 assessed: 02/17/25 Feeling nervous, anxious, or on edge: 0 = Not at all Not being able to stop or control worryin = Not at all Worrying too much about different things: 0 = Not at all Trouble relaxin = Not at all Being so restless that it is hard to sit still: 0 = Not at all Becoming easily annoyed or irritable: 0 = Not at all Feeling afraid as if something awful might happen: 0 = Not at all Total FUAD-7 score (0-4 normal; 5-9 mild; 10-14 moderate; 15-21 severe): 0 Source: Developed by Drs. Keanu Garcia, Chantel Durham, Giovanny Gordillo and colleagues, with an educational baldemar from [employer]. Physical exam (Primary Care) Vital Signs: Last Vital Signs Temp 97.7 F 02/17/25 10:47 Pulse 57 02/17/25 10:47 BP 132/70 02/17/25 10:47 Pulse Ox 98 02/17/25 10:47 Oxygen Delivery Method Room Air 02/17/25 10:47 BMI result Body Mass Index 19.8 Tobacco/Smoking Status: Tobacco use Status Tobacco use date assessed 02/17/25 02/17/25 10:16 Patient Tobacco Use Status Former Tobacco user 02/17/25 10:57 e-Cigarette/Vaping Use Former Use 02/17/25 10:57 PHQ-9: PHQ-9 Score PHQ-9: Total score 0 02/17/25 10:57 Thrive Assessment: Date of Thrive Assessment Date Thrive assessed 02/17/25 02/17/25 10:16 Coding Level of Care Code New Pt Level 4 (14784) Complex EM visit Add On G2211 Diagnoses Hyperlipidemia E78.5 Assessment & Plan Assessment & Plan (1) Hyperlipidemia: Code(s): E78.5 - Hyperlipidemia, unspecified Category: Medical Plan: Statin dosage increased to 40 mg a day. Compliance urged. Plan History of Present Illness - The patient is a 69-year-old female presenting with concerns about hyperlipidemia and anxiety. - The patient has been on statin therapy for hyperlipidemia but expresses concern regarding its use as she ages and occasional non-adherence. - She has experienced joint pain and muscle cramps, potentially linked to statin use, although she acknowledges dehydration as a factor. - Anxiety has been present since adolescence, managed with clonazepam, primarily for psychological reassurance rather than regular use. - Suspected urinary tract infection after prolonged urinary retention, now with improving symptoms. - Seasonal affective disorder is noted, with a history of depression during winter months. - Occasional irritable bowel syndrome symptoms are mentioned. - Macular degeneration is a concern, particularly due to lack of adequate [facility] coverage for ophthalmic care. 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 - Prefers to maintain a supply of clonazepam for anxiety management. - Expresses financial concerns regarding coverage for dental and eye care. Review of Systems - Musculoskeletal: Reports joint pain and cramps. - Psychiatric: Reports anxiety, seasonal affective disorder symptoms, and depression in winter. - Gastrointestinal: Reports occasional irritable bowel syndrome. - Genitourinary: Reports burning sensation during urination, improving. Physical Exam General: Cooperative and healthy appearing Nutritional Appearance: Well nourished Orientation/consciousness: Patient oriented x3 Limitations: No limitations Head: Normal to inspection General: Appearance normal, both eyes and all related structures Neck: Normal visual inspection Chest: Normal palpation of entire chest wall Respiratory: Normal respiratory effort Neurology: Patient oriented x3 Results - Labs: Elevated cholesterol levels as reported by the patient. Plan 1. Hyperlipidemia - Increase atorvastatin to 40 mg daily. - Monitor muscle symptoms and report worsening. 2. Anxiety Disorder - Continue clonazepam as needed; maintain supply. - Prescription for 1 mg tablets, 60 pills dispensed. 3. Urinary Tract Infection, Suspected - Monitor and consider urinalysis if symptoms persist. 4. Seasonal Affective Disorder - Acknowledge history; no specific treatment discussed. 5. Irritable Bowel Syndrome - Acknowledge symptoms; no specific treatment during visit. 6. Macular Degeneration - Discussed insurance concerns; no intervention planned. Discussion Notes I discussed the importance of maintaining cholesterol management through statin therapy, emphasizing the benefits of increasing the dosage for enhanced cardiovascular protection. I reassured the patient about the safety of statins and explained that muscle pain is more common than joint pain with statin use. We discussed her anxiety management plan, agreeing to continue the current clonazepam regimen with a provision for psychological reassurance. I addressed the suspected urinary tract infection, recommending monitoring symptoms and obtaining a urinalysis if symptoms worsen. We also touched upon her seasonal affective disorder and macular degeneration concerns, with no specific interventions planned during this visit. Follow-up was scheduled for six months, with blood work to be completed in five months. Patient Instructions - Increase atorvastatin to 40 mg once daily. - Continue to take clonazepam as needed for anxiety. - Monitor urinary symptoms and seek urinalysis if symptoms worsen. - Schedule blood work in five months and a follow-up visit in six months. - Contact me if muscle symptoms worsen after increasing atorvastatin dosage. - Consider seeing an [facility] [employer]IR [employer]INEER[employer] for cancer screening. - Address concerns about eye care coverage with Medicare or alternative options. Orders: Referrals [facility] [facility] Referral Z12.4 - Encounter for screening for malignant neoplasm of cervix Medications: New atorvastatin 40 mg PO DAILY 90 tabs 1RF
[2025-02-17 10:47] VITALS: BP 132/70; PULSE 57; TEMP 36.5; O2SAT 98; BMI 19.8
--- OUTSIDE RECORDS SUMMARY | 2025-02-17 11:45 | XMS_ITS | Patient Health Record ---
Author Organization [facility] Address [address] [place] [address] Care Team Providers Care Pathology Technician Name Role Phone Johan Herrera MD Primary Care Provider Keanu Camarena Unavailable [phone] Allergies Allergen (clinical drug ingredient) Drug/Non Drug [...] Problem Status W/U Status Risk Notes Problem [id number] Rectal bleeding (K62.5) Active confirmed Problem 874063232 Encounter for screening for malignant neoplasm of colon (Z12.11) Active confirmed Problem Diverticulosis of colon (896470722) Diverticulosis of colon (K57.30) Active confirmed Plan Of Treatment Future Test Test Name Order Date COLONOSCOPY 08/11/2021 Insurance Providers Payer Name Payer Address Payer Phone Subscriber Number Group Number Insured Name Patient Relationship to Insured Coverage Start Date Coverage End Date MEDICARE OF [place] [address] [place] [address] [id number] MAURO WOO Self - patient is the insured Medical (General) History Medical History History ICD Code Denies [place],DM,CVA,Lung disease,renal dise ase Osteoporosis Elevated Cholesterol Negative colonoscopy in 2001 except for internal and external hemorrhoids; negative colonoscopy in 2008 except for internal hemorrhoids Anxiety/Depression Irritable bowel syndrome with negative t ransglutaminase antibody in 2001 Surgical History Surgery Date(Month/Year) Tonsillectomy and adenoidectomy
== END 2025-02-17 11:25 | disposition home or self-care (01) ==
LOC: HO.HMCHD 10:42
PROVIDERS: Visit Provider Internal Medicine
DX: E78.5 Hyperlipidemia, unspecified (principal)

== ENCOUNTER → 2025-02-17 10:41 | Outpatient (BNVA) | payer MEDICARE, SELFPAY | PROVIDERS: Visit Provider Internal Medicine | DX: E78.5 Hyperlipidemia, unspecified (principal) | CPT/HCPCS: 99202 ==

== ENCOUNTER 2025-08-11 10:31 | Outpatient (REF) | payer MEDICARE, SELFPAY ==
[2025-08-11 12:46] LABS: Hematocrit 44.1 % (37.0-47.0); Hemoglobin 14.4 g/dl (12.0-16.0); Mean Corpuscular HGB Conc 32.7 g/dl (31.0-35.0); Mean Corpuscular Hemoglobin 32.2 pg (27.0-33.0); Mean Corpuscular Volume 98.7 fL (80.0-98.0); NRBC Abs Auto 0.000 X10*3/uL (0.0-0.012); NRBC Pct Auto 0.0 /100WBC (0.0-0.2); Platelet Count 270 X10*3/uL (160-400); Red Blood Count 4.47 X10*6/uL (4.20-5.50); White Blood Count 5.8 X10*3/uL (4.8-10.8)
[2025-08-11 13:50] LABS: Alanine Aminotransferase 32 U/L (0-31); Albumin Level 5.2 g/dL (3.5-5.0); Alkaline Phosphatase 70 U/L (39-117); Anion Gap 13 (12-20); Aspartate Amino Transferase 31 U/L (5-31); Blood Urea Nitrogen 17 mg/dL (9-16); Calcium 9.9 mg/dL (8.4-10.2); Carbon Dioxide 28 mmol/L (22-29); Chloride 105 mmol/L (96-108); Cholesterol 237 mg/dL (<200); Estimated Glomerular Filt Rate > 60; HDL Cholesterol 64 mg/dL (>40); Potassium 4.2 mmol/L (3.3-5.1); Sodium 142 mmol/L (135-145); Total Protein 7.7 g/dL (6.5-8.0); Triglycerides 165 mg/dL (<150)
[2025-08-11 15:04] LABS: Folate 12.1 ng/mL (> or = 4.0); Vitamin B12 387 pg/mL (200-900)
--- OUTSIDE RECORDS SUMMARY | 2025-08-11 23:09 | XMS_ITS | Patient Health Record ---
Author Organization [facility] Address [address] [place] [address] Care Team Providers Care Green End Department Supervisor Name Role Phone Sharon (RETIRED) Johan FIGUEROA Primary Care Provide Keanu Cook Unavailable [phone] Allergies Allergen (clinical drug ingredient) Drug/Non Drug Allergy documented on EMR Reaction Allergy Type Onset Date Status celecoxib CeleBREX Unknown Drug Allergy Active Substance with sulfonamide structure and antibacterial mechanism of action (substance) Sulfa Antibiotics Unknown Drug Allergy Active Non-steroidal anti-inflammatory agent (FN) NSAIDs life threatening Drug Allergy Active Reason For Referral No Information Medications Medication SIG (Take, Route, Fr equency, Duration) Notes Start Date End Date Status Ativan Active Zoloft Active Atorvastatin Calcium Active Immunizations Vaccine Route Administration Date Status Comme nts Influenza Unknown 08/11/2021 Refused Social History Tobacco Use: Social History Observation Description Date Details (start date - stop date) Never Smoker NA - NA Social History Drugs/Alcohol: Social Info Question Answer Notes Alcohol Screen Did you have a drink containing alcohol in the past year? Yes How often did you have a drink containing alcohol in the past year? 4 or more times a week (4 points) How many drinks did you have on a typical day when you were drinking in the past year? 1 or 2 drinks (0 point) How often did you have 6 or more drinks on one occasion in the past year? 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 Notes: Nonsmoker; 1 glass of wine Q D Problems Problem Type SNOMED Code ICD Code Onset Dates Problem Status W/U Status Risk Notes Problem Rectal bleeding (35204569) Rectal bleeding (K62.5) Active confirmed Problem Screening for malignant neoplasm of colon (501197505) Encounter for screening for malignant neoplasm of colon (Z12.11) Active confirmed Problem Diverticulosis of colon (802371747) Diverticulosis of colon (K57.30) Active confirmed Plan Of Treatment Future Test Test Name Order Date COLONOSCOPY 08/11/2021 Insurance Providers Payer Name Payer Address Payer Phone Subscriber Number Group Number Insured Name Patient Relationship to Insured Coverage Start Date Coverage End Date MEDICARE OF [place] [address] [place] [address] [id number] MAURO WOO Self - patient is the insured Medical (General) History Medical History History ICD Code Denies [place],DM,CVA,Lung disease,renal dise ase Osteoporosis Elevated Cholesterol Negative colonoscopy in 2001 except for internal and external hemorrhoids; negative colonoscopy in 2008 except for internal hemorrhoids Anxiety/Depression Irritable bowel syndrome with negative t ransglutaminase antibody in 2001 Surgical History Surgery Date(Month/Year) Tonsillectomy and adenoidectomy
== END 2025-08-11 10:32 | disposition home or self-care (01) ==
LOC: HO.LAB 10:31
PROVIDERS: PCP Physician Assistant Medical; Visit Provider Physician Assistant Medical
DX: R11.0 Nausea (principal); F41.9 Anxiety disorder, unspecified; K58.9 Irritable bowel syndrome, unspecified; E03.9 Hypothyroidism, unspecified; E78.00 Pure hypercholesterolemia, unspecified; F33.1 Major depressive disorder, recurrent, moderate; Z79.899 Other long term (current) drug therapy
CPT/HCPCS: 36415; 80053; 80061; 82306; 82607; 82746; 84443; 85027; 96127

== ENCOUNTER 2025-09-08 14:19 | Outpatient (AMB) | payer MEDICARE, SELFPAY ==
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
[2025-09-08 14:30] VITALS: BP 104/66; BMI 18.6
--- OUTSIDE RECORDS SUMMARY | 2025-09-08 19:07 | XMS_ITS | Clinical Summary ---
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 Not on dominic e 02/17/2025 Are you concerned about learning? Not on file 02/17/2025 No 02/17/2025 No 02/17/2025 Digital Access Answer Date Recorded No 02/17/2025 No 02/17/2025 Reliable internet access at home? Not on file 02/17/2025 Device with a working camera? Not on file Comments Unknown Sex and Gender Information Value Date Recorded Sex Assigned at Not on file Legal Sex Female 9:55 PM EDT Gender Identity Not on file Sexual Orientation Not on file Plan of Treatment Health Maintenance Due Date Last Done Comments Adult Td,Tdap Booster 1955 LIPID PANEL 1955 DEPRESSION SCREENING 1967 SMOKING Hx and SMOKELESS TOB ACCO SCREENING 1968 HEPATITIS C SCREENING 1973 MAMMOGRAM 1995 COLOGUARD 2000 COLONOSCOPY 2000 COLORECTAL CANCER SCREENING 2000 FIT TEST 2000 FOBT 2000 SIGMOIDOSCOPY 2000 VIRTUAL COLONOSCOPY 2000 PNEUMOCOCCAL VACCINES (50+ y ears) (1 of 1 - PCV) 2005 ZOSTER VACCINES (1 of 2) 2005 OSTEOPOROSIS SCREENING INITI AL (ONE-TIME) 2020 INFLUENZA VACCINE (#1) 2025 COVID-19 VACCINE ( - 2024-2 6 season) 2025 RSV VACCINE (1 - 1-dose 75+ series) 2030 HEPATITIS A VACCINES Aged Out No long er eligible based on patient's age to complete this topic HIB VACCINES Aged Out No longer eligi ble based on patient's age to complete this topic MENINGOCOCCAL VACCINES (ACWY) Aged Out No longer eligible based on patient's age to complete this topic MENINGOCOCCAL VACCINES (B) Aged Out N o longer eligible based on patient's age to complete this topic Medical Devices Not on file Insurance MEDICARE PART A & B MEDICARE PART A & B MEDICARE PART A & B MEDICARE PART A & B MEDICARE PART A & B Care Teams Treatment Plant Mechanic Relationship Specialty Start Date End Date Johan Herrera MD [address] [place] [address] [place] [id number] PCP - General Internal Medicine 11/16/24 Additional Source Comments The information contained in this document represents components of the legal health record. It is not the complete legal health record.[facility]
--- OUTSIDE RECORDS SUMMARY | 2025-09-08 19:07 | XMS_ITS | Patient Health Record ---
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 Section Notes: Nonsmoker; 1 glass of wine Q D Problems Problem Type SNOMED Code ICD Code Onset Dates Problem Status W/U Status Risk Notes Problem Rectal bleeding (25875241) Rectal bleeding (K62.5) Active confirmed Problem Screening for malignant neoplasm of colon (448208177) Encounter for screening for malignant neoplasm of colon (Z12.11) Active confirmed Problem Diverticulosis of colon (383925196) Diverticulosis of colon (K57.30) Active confirmed Plan Of Treatment Future Test Test Name Order Date COLONOSCOPY 08/11/2021 Insurance Providers Payer Name Payer Address Payer Phone Subscriber Number Group Number Insured Name Patient Relationship to Insured Coverage Start Date Coverage End Date MEDICARE OF [place] [address] [place] [address] [id number] MAURO WOO Self - patient is the insured Medical (General) History Medical History History ICD Code Denies OK,DM,CVA,Lung disease,renal dise ase Osteoporosis Elevated Cholesterol Negative colonoscopy in 2001 except for internal and external hemorrhoids; negative colonoscopy in 2008 except for internal hemorrhoids Anxiety/Depression Irritable bowel syndrome with negative t ransglutaminase antibody in 2001 Surgical History Surgery Date(Month/Year) Tonsillectomy and adenoidectomy
== END 2025-09-08 16:20 | disposition home or self-care (01) ==
LOC: HO.HWSM 14:19
PROVIDERS: PCP Physician Assistant Medical; Visit Provider Advanced Practice Midwife
DX: Z01.419 Encounter for gynecological examination (general) (routine) without abnormal findings (principal); Z12.39 Encounter for other screening for malignant neoplasm of breast; M81.0 Age-related osteoporosis without current pathological fracture; N89.8 Other specified noninflammatory disorders of vagina
CPT/HCPCS: G0101

== ENCOUNTER 2025-09-08 14:19 | Outpatient (REF) | payer MEDICARE, SELFPAY ==
[2025-09-09 01:33] LABS: Bacterial Vaginosis PCR NEGATIVE (Negative); Candida Group PCR NOT DETECTED (Not Detect); Candida glab krusei PCR NOT DETECTED (Not Detect); Trichomonas vaginalis PCR NOT DETECTED (Not Detect)
== END 2025-09-08 14:20 | disposition home or self-care (01) ==
LOC: HO.LNP 14:19
PROVIDERS: PCP Physician Assistant Medical; Visit Provider Advanced Practice Midwife
DX: Z01.419 Encounter for gynecological examination (general) (routine) without abnormal findings (principal); M81.0 Age-related osteoporosis without current pathological fracture; N95.2 Postmenopausal atrophic vaginitis; K59.00 Constipation, unspecified; N95.1 Menopausal and female climacteric states
CPT/HCPCS: 81515